=== PATIENT | female | born 1980 | race Two or more races ===

== ENCOUNTER 2018-03-21 19:38 | Emergency (ER) | payer SELFPAY ==
[~2018-03-21] VITALS: Ht 167.6 cm; Wt 77.1 kg
--- NOTE | 2018-03-21 19:40 | NUR ---
ED Nurse Note: Patient presents with expressed recent history of ETOH consumption. Patient has delayed speech response bu tis able to recognize person, place and situation. Patient has no complaints at this time.
[2018-03-21 19:52] VITALS: BP 106/74
--- NOTE | 2018-03-21 20:16 | NUR ---
ED Nurse Note: Patient unable to render information for specialty person and cannot locate phone. Patient was offered water to attempt to sober up. Patient threw cup and laid down.
--- NOTE | 2018-03-21 21:30 | NUR ---
ED Nurse Note: Patient is sleeping soundly with no s/s of acute distress.
--- NOTE | 2018-03-21 22:40 | NUR ---
ED Nurse Note: Patient is sleeping, breathing is regular, no s/s of discomfort noted.
--- NOTE | 2018-03-21 23:08 | Emergency Room Report ---
History of Present Illness General Chief Complaint: General Complaint Source: Patient Present Illness Allergies: Coded Allergies: No Known Allergies (Unverified , 03/21/18) Patient History Last Menstrual Period: Unknown Now: No - Unknown Nursing Documentation-[facility] Past Medical History: No Stated History Physical Exam Vital Signs Date Time Temp Pulse Resp B/P (MAP) Pulse Ox O2 Delivery O2 Flow Rate FiO2 03/21/18 19:31 98.8 74 14 106/74 99 Room Air Medical Decision Making Diagnostic Impression: Primary Impression: Alcohol intoxication Qualified Codes: F10.920 - Alcohol use, unspecified with intoxication, uncomplicated ER Course This patient was initially seen by Dr. Stewart. Please see his initial note for full H&P. This patient was signed out to me for final disposition. She presents with alcohol intoxication. There was no trauma. Patient slept here for several hours and now awake. Walking to the bathroom without any difficulty. No slurred speech. We'll discharge the patient home. Last Vital Signs Date Time Temp Pulse Resp B/P (MAP) Pulse Ox O2 Delivery O2 Flow Rate FiO2 03/21/18 19:52 74 14 Room Air 03/21/18 19:52 98.8 106/74 99 Status: improved Disposition: HOME, SELF-CARE Condition: Stable Referrals: NOT CHOSEN IPA/,REFERRING (PCP) Additional Instructions: abstain from drinking to excess. Follow-up with your doctor in 7 days. Return if symptom worsen. Laurent Quiroz MD Mar 21, 2018 23:08
--- NOTE | 2018-03-21 23:31 | NUR ---
ED Nurse Note: Patient discharged, A&Ox3, ambulatory with steady gait, ID band removed. patient verbalized understanding of discharge instructions.
[2018-03-21 23:32] VITALS: BP 125/83
--- NOTE | 2018-03-24 06:41 | Emergency Room Report ---
History of Present Illness General Chief Complaint: General Complaint Source: Patient Present Illness HPI 37-year-old female presents ED for evaluation. Patient brought in by EMS for alcohol intoxication. Patient admits drinking alcohol today. Denies falling or injuring herself. Denies pain. Denies LOC. Denies drug use. Denies SI or HI. Denies hearing voices. No other aggravating relieving factors. Denies any other associated symptoms Allergies: Coded Allergies: No Known Allergies (Unverified , 03/21/18) Patient History Past Medical History: none Past Surgical History: none Pertinent Family History: none Social History: Denies: smoking, alcohol use, drug use Last Menstrual Period: Unknown Now: No - Unknown Immunizations: UTD Reviewed Nursing Documentation: PMH: Agreed; PSxH: Agreed Nursing Documentation-PMH Past Medical History: No Stated History Review of Systems All Other Systems: negative except mentioned in HPI Physical Exam Vital Signs Date Time Temp Pulse Resp B/P (MAP) Pulse Ox O2 Delivery O2 Flow Rate FiO2 03/21/18 19:31 98.8 74 14 106/74 99 Room Air Sp02 EP Interpretation: reviewed, normal General Appearance: no apparent distress, GCS 15, non-toxic, other - intoxicated Head: normocephalic Eyes: bilateral eye normal inspection, bilateral eye PERRL ENT: normal ENT inspection Neck: normal inspection Respiratory: chest non-tender, lungs clear, normal breath sounds, speaking full sentences Cardiovascular #1: regular rate, rhythm, no edema Gastrointestinal: normal bowel sounds, non tender, soft, non-distended, no guarding, no rebound Rectal: deferred Genitourinary: no CVA tenderness Musculoskeletal: normal inspection Neurologic: other - intoxicated Psychiatric: other - intoxicated Skin: normal inspection Lymphatic: normal inspection Medical Decision Making Diagnostic Impression: Primary Impression: Alcohol intoxication Qualified Codes: F10.920 - Alcohol use, unspecified with intoxication, uncomplicated ER Course Hospital Course 37-year-old female presents to ED status post EtOH intoxication. Clinical course Patient placed on stretcher. Given that patient is able to provide an adequate history, I see no need to check blood work or place an IV. Patient allowed to sleep. My assessment shows no evidence of SI/HI requiring psychiatric evaluation. patient likely can be discharged home upon sobriety. patient will be signed out to Dr Quiroz pending reevaluation upon sobriety Diagnosis - ETOH intoxication Last Vital Signs Date Time Temp Pulse Resp B/P (MAP) Pulse Ox O2 Delivery O2 Flow Rate FiO2 03/21/18 23:32 98.6 86 16 125/83 99 Room Air Status: improved Disposition: HOME, SELF-CARE Condition: Stable Signed Out To: Dr Quiroz Referrals: NOT CHOSEN IPA/MD,REFERRING (PCP) Patient Instructions: Alcohol Intoxication, [id number] Additional Instructions: abstain from drinking to excess. Follow-up with your doctor in 7 days. Return if symptom worsen. Ruben Stewart MD Mar 24, 2018 06:41
== END 2018-03-21 23:34 | disposition home or self-care (01) ==
LOC: EDBD 19:38 → EMR 21:00
DX: F10.920 Alcohol use, unspecified with intoxication, uncomplicated (principal)
CPT/HCPCS: 99282